=== PATIENT | female | born 1985 | race Caucasian/White ===

== ENCOUNTER → 2018-03-16 | Outpatient (CLI) | payer BC ==
[~2018-03-16] MED LIST: IBUP800 PO; OXYC-360 PO; PRENTAB72 PO
[2018-03-16 08:29] LABS: AUTOMATED NEUTROPHIL # 5.9 TH/MM3 (1.8-7.7); BASOPHIL # 0.1 TH/MM3 (0-0.2); BASOPHIL % 0.6 % (0.0-2.0); EOSINOPHIL # 0.4 TH/MM3 (0-0.4); EOSINOPHIL % 3.7 % (0.0-4.0); HEMATOCRIT 37.9 % (35.0-46.0); HEMOGLOBIN 12.7 GM/DL (11.6-15.3); LYMPH % 30.6 % (9.0-44.0); LYMPHOCYTE # 3.1 TH/MM3 (1.0-4.8); MEAN CELL VOLUME 93.5 FL (80.0-100.0); MEAN CORPUSCULAR HEMOGLOBIN 31.3 PG (27.0-34.0); MEAN CORPUSCULAR HGB CONC 33.5 % (32.0-36.0); MEAN PLATELET VOLUME 8.9 FL (7.0-11.0); MONO % 5.9 % (0.0-8.0); MONOCYTE # 0.6 TH/MM3 (0-0.9); NEUT % 59.2 % (16.0-70.0); PLATELET COUNT 292 TH/MM3 (150-450); RED BLOOD COUNT 4.06 MIL/MM3 (4.00-5.30); RED CELL DISTRIBUTION WIDTH 12.8 % (11.6-17.2); WHITE BLOOD COUNT 10.1 TH/MM3 (4.0-11.0)
[2018-03-16 08:49] LABS: ALBUMIN 3.9 GM/DL (3.4-5.0); ALT (GPT) 22 U/L (10-53); AST (GOT) 13 U/L (15-37); BICARBONATE 24.6 MEQ/L (21.0-32.0); BLOOD UREA NITROGEN 9 MG/DL (7-18); C-REACTIVE PROTEIN LESS THAN 0.29 MG/DL (0.00-0.30); CALCIUM 8.8 MG/DL (8.5-10.1); CHLORIDE 106 MEQ/L (98-107); CHOLESTEROL 178 MG/DL (120-200); CREATININE 0.64 MG/DL (0.50-1.00); GLOMERULAR FILTRATION RATE 106 ML/MIN (>89); GLUCOSE,FASTING 91 MG/DL (74-99); SODIUM (NA) 140 MEQ/L (136-145)
[2018-03-16 09:03] LABS: WESTERGREN SEDIMENTATION RATE 18 mm/hr (0-20)
[2018-03-16 09:14] LABS: ALKALINE PHOSPHATASE 41 U/L (45-117); CHOLESTEROL/ HDL RATIO 2.95 RATIO; HDL CHOLESTEROL 60.2 MG/DL (40.0-60.0); LDL CHOLESTEROL 91 MG/DL (0-99); TOTAL BILIRUBIN ADULT 0.5 MG/DL (0.2-1.0); TOTAL PROTEIN 7.9 GM/DL (6.4-8.2); TRIGLYCERIDES 132 MG/DL (42-150)
[2018-03-16 09:17] LABS: FOLATE GREATER THAN 20.0 NG/ML (3.1-17.5)
[2018-03-16 15:55] LABS: HEMOGLOBIN A1C 4.8 % (4.3-6.0)
[2018-03-18 16:11] LABS: MITOGEN MINUS NIL RESULT >10.00 IU/mL; NIL RESULT 0.02 IU/mL; QUANTIFERON TB GOLD + RESULT Negative (Negative)
== END ==
LOC: CLAB 07:46
PROVIDERS: ATTEND Internal Medicine Gastroenterology
DX: R93.8 Abnormal findings on diagnostic imaging of other specified body structures (principal); O02.1 Missed abortion; K51.90 Ulcerative colitis, unspecified, without complications; R19.7 Diarrhea, unspecified
CPT/HCPCS: 36415; 80053; 80061; 82306; 82607; 82746; 83036; 84443; 85025; 85652; 86140; 86480; 86850; 86900; 86901; 87340